=== PATIENT | male | born 1970 | race Caucasian/White ===

== ENCOUNTER 2022-06-27 16:59 | Emergency (ER) | payer OTHER ==
[2022-06-27 17:21] VITALS: RESP 16; TEMP 97.6
[2022-06-27] MEDS ORDERED: SODIUM CHLORIDE 0.9% 1,000 ML IV STA (18:49)
--- NOTE | 2022-06-27 18:53 | ED ---
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 Past week is intermittent sharp is worse 9-10/10 in severity currently is about 6/10 of fevers chills nausea vomiting sweats no cough no shortness of breath no dysuria hematuria concern for diverticular disease as well as concern for the previous history. No other abdominal surgeries no history of any gallbladder disease at the [facility]. (Ned Hogan) - Related Data Allergies Allergy/AdvReac Type Severity Reaction Status Date / Time No Known Allergies Allergy Verified 06/27/22 17:21 Review of Systems ROS Other: All systems not noted in ROS Statement are negative. <Ned Hogan - Last Filed: 06/27/22 21:39> ROS Other: All systems not noted in ROS Statement are negative. <Gregorio Barbosa - Last Filed: 06/27/22 23:18> ROS Statement: Those systems with pertinent positive or pertinent negative responses have been documented in the HPI. Past Medical History Past Medical History: Atrial Fibrillation, Hyperlipidemia, Hypertension Additional Past Medical History / Comment(s): kidney stones, type A and type B cardiac dissections History of Any Multi-Drug Resistant Organisms: None Reported Additional Past Surgical History / Comment(s): cardiac dissection surgery, kidney stone surgery Past Psychological History: No Psychological Hx Reported Smoking Status: Never smoker Past Alcohol Use History: None Reported Past Drug Use History: None Reported <Ned Hogan - Last Filed: 06/27/22 21:39> General Exam Limitations: no limitations General appearance: alert, in no apparent distress Head exam: Present: atraumatic, normocephalic, normal inspection Eye exam: Present: normal appearance, PERRL, EOMI. Absent: scleral icterus, conjunctival injection, periorbital swelling ENT exam: Present: normal exam, mucous membranes moist Neck exam: Present: normal inspection, full ROM. Absent: tenderness, meningismus, lymphadenopathy Respiratory exam: Present: normal lung sounds bilaterally. Absent: respiratory distress, wheezes, rales, rhonchi, stridor Cardiovascular Exam: Present: regular rate, normal rhythm, normal heart sounds. Absent: systolic murmur, diastolic murmur, rubs, gallop, clicks GI/Abdominal exam: Present: soft, tenderness (Mild left upper quadrant tenderness palpation), normal bowel sounds. Absent: distended, guarding, rebound, rigid, bruit, pulsatile mass Extremities exam: Present: normal inspection, full ROM, normal capillary refill. Absent: tenderness, pedal edema, joint swelling, calf tenderness Back exam: Present: normal inspection Neurological exam: Present: alert, oriented X3, CN II-XII intact Psychiatric exam: Present: normal affect, normal mood Skin exam: Present: warm, dry, intact, normal color. Absent: rash <Ned Hogan - Last Filed: 06/27/22 21:39> - General Exam Comments Initial Comments: This is a well-developed well-nourished awake alert oriented 2 male (Ned Hogan) Course <Ned Hogan - Last Filed: 06/27/22 21:39> Vital Signs 06/27/22 06/27/22 06/27/22 17:15 20:10 21:44 Temperature 97.6 F Pulse Rate 72 64 66 Respiratory 16 16 16 Rate Blood Pressure 148/89 157/78 172/82 O2 Sat by Pulse 96 97 95 Oximetry 06/27/22 06/27/22 22:00 22:57 Temperature Pulse Rate 68 70 Respiratory 16 16 Rate Blood Pressure 172/85 175/83 O2 Sat by Pulse 99 97 Oximetry - Reevaluation(s) Reevaluation #1: 06/27/22 21:39 CT CAT scan is pending at this time as well as results patient's case is endorsed to Dr. Barbosa at our shift change. (Ned Hogan) Medical Decision Making - Lab Data Result diagrams: 06/27/22 18:53 06/27/22 18:53 <Ned Hogan - Last Filed: 06/27/22 21:39> - Lab Data Result diagrams: 06/27/22 18:53 06/27/22 18:53 <Gregorio Barbosa - Last Filed: 06/27/22 23:18> - Medical Decision Making Patient's 51-year-old man with history of previous aortic dissection and also history kidney stone who presents with left sided abdominal pain. He was seen by my colleague and signed out pending the results of the computed tomography scan. The computed tomography scan does show aortic dissection down to the level of the bifurcation. There is also left-sided kidney stone with hydronephrosis. Discussed the results with patient and as we do not have old CT to compare I did recommend that we transfer him to have comparison of the new CT was the old CT and make sure there is no acute component of dissection given the pain and the patient's hypertension. Patient understands this but states [place] and is going to leave. He declines further analgesics here, patient given dose of labetalol. (Gregorio Barbosa) - Lab Data Lab Results 06/27/22 06/27/22 06/27/22 Range/Units 18:53 18:53 18:53 WBC 9.8 (3.8-10.6) k/uL RBC 5.34 (4.30-5.90) m/uL Hgb 15.8 (13.0-17.5) gm/dL Hct 46.7 (39.0-53.0) % MCV 87.6 (80.0-100.0) fL MCH 29.6 (25.0-35.0) pg MCHC 33.8 (31.0-37.0) g/dL RDW 14.5 (11.5-15.5) % Plt Count 218 (150-450) k/uL MPV 8.0 Neutrophils % 80 % Lymphocytes % 10 % Monocytes % 6 % Eosinophils % 1 % Basophils % 0 % Neutrophils # 7.9 H (1.3-7.7) k/uL Lymphocytes # 1.0 (1.0-4.8) k/uL Monocytes # 0.6 (0-1.0) k/uL Eosinophils # 0.1 (0-0.7) k/uL Basophils # 0.0 (0-0.2) k/uL PT 28.3 H (9.0-12.0) sec INR 2.8 H (<1.2) Sodium 141 (137-145) mmol/L Potassium 3.7 (3.5-5.1) mmol/L Chloride 103 (98-107) mmol/L Carbon Dioxide 27 (22-30) mmol/L Anion Gap 11 mmol/L BUN 22 H (9-20) mg/dL Creatinine 1.16 (0.66-1.25) mg/dL Est GFR (CKD-EPI)AfAm 83 (>60 ml/min/1.73 sqM) Est GFR (CKD-EPI)NonAf 72 (>60 ml/min/1.73 sqM) Glucose 105 H (74-99) mg/dL Plasma Lactic Acid Isaac (0.7-2.0) mmol/L Calcium 9.3 (8.4-10.2) mg/dL Magnesium 2.1 (1.6-2.3) mg/dL Total Bilirubin 0.9 (0.2-1.3) mg/dL AST 19 (17-59) U/L ALT 25 (4-49) U/L Alkaline Phosphatase 158 H (38-126) U/L Troponin I (0.000-0.034) ng/mL Total Protein 7.7 (6.3-8.2) g/dL Albumin 4.3 (3.5-5.0) g/dL Amylase 68 (30-110) U/L Lipase 92 (23-300) U/L Urine Color Urine Appearance (Clear) Urine pH (5.0-8.0) Ur Specific [place] (1.001-1.035) Urine Protein (Negative) Urine Glucose (UA) (Negative) Urine Ketones (Negative) Urine Blood (Negative) Urine Nitrite (Negative) Urine Bilirubin (Negative) Urine Urobilinogen (<2.0) mg/dL Ur Leukocyte Esterase (Negative) 06/27/22 06/27/22 06/27/22 Range/Units 18:53 18:53 18:57 WBC (3.8-10.6) k/uL RBC (4.30-5.90) m/uL Hgb (13.0-17.5) gm/dL Hct (39.0-53.0) % MCV (80.0-100.0) fL MCH (25.0-35.0) pg MCHC (31.0-37.0) g/dL RDW (11.5-15.5) % Plt Count (150-450) k/uL MPV Neutrophils % % Lymphocytes % % Monocytes % % Eosinophils % % Basophils % % Neutrophils # (1.3-7.7) k/uL Lymphocytes # (1.0-4.8) k/uL Monocytes # (0-1.0) k/uL Eosinophils # (0-0.7) k/uL Basophils # (0-0.2) k/uL PT (9.0-12.0) sec INR (<1.2) Sodium (137-145) mmol/L Potassium (3.5-5.1) mmol/L Chloride (98-107) mmol/L Carbon Dioxide (22-30) mmol/L Anion Gap mmol/L BUN (9-20) mg/dL Creatinine (0.66-1.25) mg/dL Est GFR (CKD-EPI)AfAm (>60 ml/min/1.73 sqM) Est GFR (CKD-EPI)NonAf (>60 ml/min/1.73 sqM) Glucose (74-99) mg/dL Plasma Lactic Acid Isaac 0.9 (0.7-2.0) mmol/L Calcium (8.4-10.2) mg/dL Magnesium (1.6-2.3) mg/dL Total Bilirubin (0.2-1.3) mg/dL AST (17-59) U/L ALT (4-49) U/L Alkaline Phosphatase (38-126) U/L Troponin I 0.075 H* (0.000-0.034) ng/mL Total Protein (6.3-8.2) g/dL Albumin (3.5-5.0) g/dL Amylase (30-110) U/L Lipase (23-300) U/L Urine Color Yellow Urine Appearance Clear (Clear) Urine pH 6.5 (5.0-8.0) Ur Specific [place] 1.014 (1.001-1.035) Urine Protein Trace H (Negative) Urine Glucose (UA) Negative (Negative) Urine Ketones Negative (Negative) Urine Blood Negative (Negative) Urine Nitrite Negative (Negative) Urine Bilirubin Negative (Negative) Urine Urobilinogen <2.0 (<2.0) mg/dL Ur Leukocyte Esterase Negative (Negative) Disposition <Ned Hogan - Last Filed: 06/27/22 21:39> Is patient prescribed a controlled substance at d/c from ED?: No <Gregorio Barbosa - Last Filed: 06/27/22 23:18> Clinical Impression: Abdominal pain, Aortic dissection, Kidney stone on left side, Hydronephrosis Disposition: Left Against Medical Advice Condition: Undetermined Instructions (If sedation given, give patient instructions): Abdominal Pain (ED) Referrals: Nonstaff,Physician [Primary Care Provider] - 1-2 days
[2022-06-27 19:02] LABS: Basophils % (A) 0 %; Eosinophils # (A) 0.1 k/uL (0-0.7); Eosinophils % (A) 1 %; HCT 46.7 % (39.0-53.0); HGB 15.8 gm/dL (13.0-17.5); Lymphocytes % (A) 10 %; MCH 29.6 pg (25.0-35.0); MCHC 33.8 g/dL (31.0-37.0); MCV 87.6 fL (80.0-100.0); Monocytes # (A) 0.6 k/uL (0-1.0); Monocytes % (A) 6 %; Neutrophils # (A) 7.9 k/uL (1.3-7.7); Neutrophils % (A) 80 %; Platelet Count 218 k/uL (150-450); RBC 5.34 m/uL (4.30-5.90); RDW 14.5 % (11.5-15.5); WBC 9.8 k/uL (3.8-10.6)
[2022-06-27 19:09] LABS: INR 2.8 (<1.2)
[2022-06-27 19:10] LABS: Prothrombin Time 28.3 sec (9.0-12.0)
[2022-06-27 19:11] LABS: Albumin 4.3 g/dL (3.5-5.0); Calcium 9.3 mg/dL (8.4-10.2); Magnesium 2.1 mg/dL (1.6-2.3); Potassium 3.7 mmol/L (3.5-5.1); Total Bilirubin 0.9 mg/dL (0.2-1.3); Total Protein 7.7 g/dL (6.3-8.2)
--- NOTE | 2022-06-27 20:12 | XR ---
EXAMINATION TYPE: XR chest 2V DATE OF EXAM: 06/27/2022 COMPARISON: NONE HISTORY: Left upper quadrant pain TECHNIQUE: 2 views FINDINGS: There is no heart failure nor confluent pneumonic infiltrate. There is stent in the descend ing thoracic aorta. There are sternal wires. No pleural effusion. Bony thorax is intact IMPRESSION: Previous aortic surgery. No active cardiopulmonary disease.
--- NOTE | 2022-06-27 20:16 | XR ---
EXAMINATION TYPE: XR KUB DATE OF EXAM: 06/27/2022 COMPARISON: NONE HISTORY: Left upper quadrant pain TECHNIQUE: 2 views upright FINDINGS: There is no sign of intestinal obstruction or pneumoperitoneum. Fecal pattern is normal. Th e catheter over the left upper quadrant. There are chest leads. There is stent in the descending thor acic aorta and upper abdominal aorta. There is possible 7 mm calculus at the left renal pelvis. IMPRESSION: Possible left renal calculus. Nonacute bowel gas pattern.
[2022-06-27] MEDS ORDERED: HYDROmorphone 1 MG/ML 1 ML SYRINGE IVP STA (20:17)
[2022-06-27 20:27] LABS: Appearance,Urine Clear (Clear); Bilirubin,Urine Negative (Negative); Blood,Urine Negative (Negative); Color,Urine Yellow; Glucose,Urine (UA) Negative (Negative); Ketones,Urine Negative (Negative); Leukocyte Esterase,Urine Negative (Negative); Nitrite,Urine Negative (Negative); PH, Urine 6.5 (5.0-8.0); Protein,Urine Trace (Negative); Specific Gravity,Urine 1.014 (1.001-1.035); Urobilinogen,Urine <2.0 mg/dL (<2.0)
--- NOTE | 2022-06-27 21:58 | CT ---
EXAMINATION TYPE: CT angio thor/abd pel aorta DATE OF EXAM: 06/27/2022 COMPARISON: None HISTORY: Atypical abdomen pain. Hx aortic dissection. Diverticulitis? CT DLP: 6034.5 mGycm Automated exposure control for dose reduction was used. CONTRAST: Performed with IV Contrast, patient injected with 100 mL of Isovue 370. Images obtained from the thoracic inlet to the floor the pelvis without and subsequently with the IV contrast. There are 3-D post processed images. The lungs are clear. Consolidation. No pleural effusion no pericardial effusion. Heart appears enlarg ed. There is an endograft in the descending thoracic aorta extending into the upper abdominal aorta g raft extends to the celiac artery. There is dissection of the lower abdominal aorta extending into th e aortic bifurcation there is patency of the celiac artery and superior mesenteric artery. There is a rterial flow in the renal and iliac and femoral arteries. The appendix appears normal bilaterally dis tends smoothly. No inguinal hernia. No free fluid in the pelvis. No pelvic mass. There is left-sided renal atrophy and hydronephrosis. There is 8 mm obstructing calculus at the left ureteropelvic junction there is bariatric surgery with a sleeve around the gastroesophageal junction. The pancreas is intact. No focal liver defect. Gallbladder is normal. Spleen is intact. No dilated du cts. Enteric edema. No ascites or free air. No sign of a bowel obstruction. There are multiple calcul i in the dilated left renal pelvis at the lower pole of the left kidney. Right kidney shows normal ex cretion Thoracic and lumbar spine are intact. No compression fracture. Sternum is intact. There are sternal w ires. The bony pelvis is intact. There is stent in the right common iliac artery and stent appears to show normal contrast opacification. IMPRESSION: There is normal contrast opacification of the thoracic aorta endograft. There is dissection of the ab dominal aorta extending from the diaphragm to the aortic bifurcation where evidence of hemodynamic st enosis. 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 Obstructing calculus at the left ureteropelvic junction with left hydronephrosis and renal atrophy. M ultiple left-sided renal calculi.
[2022-06-27] MEDS ORDERED: LABETALOL 5 MG/ML VIAL MDV IVP STA (22:48)
[2022-06-27 23:46] VITALS: BP 168/85; PULSE 68
== END 2022-06-27 23:48 | disposition left against medical advice (07) ==
LOC: EC 16:59
DX: N13.2 Hydronephrosis with renal and ureteral calculous obstruction (principal); I71.02 Dissection of abdominal aorta; I10 Essential (primary) hypertension; I48.91 Unspecified atrial fibrillation; E78.5 Hyperlipidemia, unspecified; Z53.29 Procedure and treatment not carried out because of patient's decision for other reasons
CPT/HCPCS: 36415; 80053; 82150; 83605; 83690; 83735; 84484; 85025; 85610; 81003; 87040; 71046; 74018; 71275; 74174; 99284; 96374; 96375; 96361; J1170; Q9967